=== PATIENT | female | born 1950 | race Caucasian/White ===

== ENCOUNTER 2021-08-18 13:50 | Emergency (ER) | payer MEDICARE, SELFPAY ==
--- NOTE | ~2021-08-18 | XR_ITS ---
EXAMINATION: XR chest 2V EXAM DATE: 08/18/2021 14:20 INDICATION: short of breath x 3 days non smoker . TECHNIQUE: Frontal and lateral projections of the chest obtained and reviewed. Comparison is made to prior examination from 12/30/2013. FINDINGS: Scattered small to moderate amount of right middle lobe airspace disease most consistent w ith pneumonia and atelectasis, smaller amount of right upper lobe and left-sided pneumonia or atelect asis. Mild cardiomegaly. There is no pneumothorax suspected. Mild hyperinflation. There is aortic art eriosclerosis. There are no pleural effusions. IMPRESSION: 1. Right middle lobe predominant airspace disease probably pneumonia. Smaller other regions of airsp marty disease bilaterally. 2. Hyperinflation. Reviewed, dictated and finalized at location G. PULLER IMPRESSION: 1. Right middle lobe predominant airspace disease probably pneumonia. Smaller other regions of airspace disease bilaterally. 2. Hyperinflation.
--- NOTE | 2021-08-18 13:51 | ED.URI ---
HPI - URI/Sore Throat General Chief Complaint: Upper Respiratory Infection Stated Complaint: Shortness of breath Time Seen by Provider: 08/18/21 14:01 Source: patient, RN notes reviewed and old records reviewed Mode of arrival: ambulatory Limitations: no limitations History of Present Illness HPI Narrative: 71-year-old female presents to the [facility] with complaints of shortness of breath for the last 3 to 4 days. Patient has a history of COPD. Sees a pile operator, Dr. Alvarez, and called him 3 days ago. States that he called her pile operator 3 to 4 days ago. Patient reports that a albuterol inhaler was called in, has been using and taking all of her medications as prescribed. Reports that the doctor told her that if she is not getting any better or gets worse to go to the ER. Patient comes in today with concerns that she might have pneumonia. Patient is talking in full sentences. States that she is not having chest pain but states her breathing feels tight. Denies cough or fever Pertinent past history: pneumonia, COPD and asthma Related Data Home Medications Medication Instructions Recorded Confirmed albuterol sulfate [Proventil HFA] INHALATION 08/18/21 alprazolam 08/18/21 amlodipine 08/18/21 atorvastatin 08/18/21 budesonide-formoterol [Symbicort] INHALATION 08/18/21 ferrous sulfate mg 08/18/21 losartan 08/18/21 neomycin-polymyxin B-dexameth drp 08/18/21 nitroglycerin mg 08/18/21 sertraline mg 08/18/21 Allergies Allergy/AdvReac Type Severity Reaction Status Date / Time aspirin Allergy Mild Verified 08/18/21 14:25 Penicillins Allergy Mild Verified 08/18/21 14:25 Review of Systems Review of Systems: All systems reviewed & are unremarkable except as noted in HPI and below Constitutional: Constitutional: Reports no additional constitutional complaints, Denies chills and Denies fever(s) Eyes: Eyes: Reports no additional eye complaints ENT: Reports system reviewed and no additional complaints, except as documented Cardiovascular: Cardiovascular: Reports no additional cardiovascular complaints, Denies chest pain, Denies rapid heart rate and Denies radiating jaw, neck or arm pain Respiratory: Respiratory: Reports as per HPI, Denies chest congestion, Denies cough, Reports dyspnea and Denies wheezing Gastrointestinal: Gastrointestinal: Reports no additional gastrointestinal complaints, Denies abdominal pain, Denies nausea and Denies vomiting Musculoskeletal: Musculoskeletal: Reports no additional musculoskeletal complaints and Denies joint swelling Integumentary/Breasts: Skin/Breast: Reports system reviewed and no additional complaints, except as docu Neurologic: Reports system reviewed and no additional complaints, except as documented Psychiatric: Psychiatric: Reports no additional psychiatric complaints Allergic/Immunologic: Allergic/Immunologic: Reports no additional allergic/immunologic complaints [facility] Past Medical History Medical History Asthma COPD (chronic obstructive pulmonary disease) High cholesterol History of high blood pressure Surgical History Surgical History No history of previous surgery Comments At the time of my signature, I reviewed and agree with the nursing past medical, surgical, social, and family history. There is no relevant family history pertinent to the patient complaint. Exam Const: General: no acute distress, alert and ill appearing chronically Nutritional Appearance: well nourished Orientation/consciousness: patient oriented x3 Limitations: no limitations HENMT: Head: normal to inspection Ears: external ears normal, TM's normal bilaterally and EAC's normal General nose exam: Normal external nose present and Normal nasal mucous membranes and turbinates present Face and sinus: normal facial exam Mouth: Yes Normal oral and palatal mucosa present Naomi
[2021-08-18 14:04] VITALS: BP 94/58; PULSE 100; RESP 18; TEMP 37.6; O2SAT 98
[2021-08-18 14:13] VITALS: BP 94/58; PULSE 100; RESP 18; TEMP 37.6; O2SAT 98
--- NOTE | 2021-08-18 14:19 | ECG_ITS ---
Measurements Intervals [place] Rate: 99 P: 23 [place]: 142 QRS: -9 QRSD: 78 T: -1 QT: 323 QTc: 415 Interpretive Statements SINUS RHYTHM EARLY PRECORDIAL R/S TRANSITION CONSIDER INFERIOR INFARCT, AGE INDETERMINATE ABNORMAL ECG Electronically Signed On 08-18-2021 18:13:03 AUT[employer]ATION QA TESTER by Donn Glez D.O.
== END 2021-08-18 14:35 | disposition home or self-care (01) ==
PROVIDERS: Emergency Provider Nurse Practitioner
DX: J18.1 Lobar pneumonia, unspecified organism (principal); J44.9 Chronic obstructive pulmonary disease, unspecified; E78.00 Pure hypercholesterolemia, unspecified; I10 Essential (primary) hypertension
CPT/HCPCS: 71046; 93005; 99213; G0463

== ENCOUNTER → 2021-09-01 13:43 | Outpatient (CLI) | payer MEDICARE, SELFPAY ==
--- NOTE | ~2021-09-01 | XR_ITS ---
EXAMINATION: XR chest 2V DATE: 09/01/2021 14:10 INDICATION: Pneumonia of right middle lobe due to infectious organism. TECHNIQUE: Frontal and lateral views of the chest were obtained. COMPARISON: Chest 2 views 08/18/2021, 12/30/2013 FINDINGS: There are airspace opacities in the mid and lower lung zones. There is mild scarring at the lung apices. No pleural effusion or pneumothorax. The heart size is normal. There is a moderate-size d hiatal hernia. IMPRESSION: 1. Stable airspace opacities in the mid and lower lung zones, consistent with pneumonia. 2. Moderate-sized hiatal hernia. Reviewed, dictated and finalized at location A. [facility] TENDER IMPRESSION: 1. Stable airspace opacities in the mid and lower lung zones, consistent with p neumonia. 2. Moderate-sized hiatal hernia.
== END ==
PROVIDERS: PCP Internal Medicine Pulmonary Disease; Visit Provider Internal Medicine Pulmonary Disease
DX: J18.9 Pneumonia, unspecified organism (principal); K44.9 Diaphragmatic hernia without obstruction or gangrene; R91.8 Other nonspecific abnormal finding of lung field
CPT/HCPCS: 71046

== ENCOUNTER 2021-11-07 12:05 | Emergency (ER) | payer MEDICARE, SELFPAY ==
[2021-11-07 12:11] VITALS: BP 110/55; PULSE 97; RESP 16; TEMP 35.9; O2SAT 99
--- NOTE | 2021-11-07 12:23 | ED.GENADULT ---
HPI - General Adult General Chief complaint: Unspecified Stated complaint: uri Time Seen by Provider: 11/07/21 12:26 Mode of arrival: ambulatory Limitations: no limitations History of Present Illness HPI narrative: 71-year-old female presents with concern for 2-day history of left lower jaw pain and swelling. Reports symptoms started after she flossed her teeth. She denies any known dental problems. She reports pain when she chews and her jaws tender to touch. She reports she had fever and chills 2 nights ago but has not had any since. Reports she has been taking Tylenol. She denies difficulty swallowing, headache, chest pain or trouble breathing. MD complaint: Jaw pain Related Data Home Medications Medication Instructions Recorded Confirmed albuterol sulfate [Proventil HFA] 1 puff INHALATION DAILY 08/18/21 11/07/21 alprazolam 0.5 mg PO PRN 08/18/21 11/07/21 amlodipine 5 mg PO DAILY 08/18/21 11/07/21 atorvastatin 40 mg PO DAILY 08/18/21 11/07/21 budesonide-formoterol [Symbicort] 1 puff INHALATION DAILY 08/18/21 11/07/21 ferrous sulfate 325 mg PO DAILY 08/18/21 11/07/21 losartan 50 mg PO DAILY 08/18/21 11/07/21 nitroglycerin 0.4 mg SUBLINGUAL PRN 08/18/21 11/07/21 sertraline 100 mg PO DAILY 08/18/21 11/07/21 Allergies Allergy/AdvReac Type Severity Reaction Status Date / Time aspirin Allergy Mild Unknown Verified 11/07/21 12:16 Penicillins Allergy Mild Unknown Verified 11/07/21 12:16 Review of Systems Review of Systems: CONSTITUTIONAL: Denies current malaise, chills, sweats, or fever. ENT: Denies rhinorrhea, congestion, sinus pain, otalgia or sore throat. Reports left lower jaw pain and swelling CARDIOVASCULAR: Denies chest pain, palpitations, or edema. RESPIRATORY: Denies cough or dyspnea. GASTROINTESTINAL: Denies nausea, vomiting SKIN: Denies rash or itching. Denies redness, warmth MUSCULOSKELETAL: Denies myalgia. NEUROLOGIC: Denies numbness, weakness, or headache. All systems reviewed & are unremarkable except as noted in HPI and below PMFSH Past Medical History Medical History Asthma COPD (chronic obstructive pulmonary disease) High cholesterol History of high blood pressure Surgical History Surgical History No history of previous surgery Social History Social History Gender identity (if verbalized by the patient): Female Comments At time of signature, agree with nursing past medical, surgical, social and family history. There is no relevant family history pertinent to the presenting complaint Exam Narrative: GENERAL: Well-appearing, well-nourished, and in no acute distress. HEAD: Normocephalic, atraumatic. EYES: PERRLA, sclera clear, and EOMI. No nystagmus. ENT: Nares clear, turbinates pink, no rhinorrhea or epistaxis. Mucous membranes moist. TM pearly ty with sharp light reflex bilaterally; no tragal tenderness. Oropharynx without erythema or lesions. Tonsils not enlarged and without exudate. No facial erythema, induration, warmth noted. Left lower jaw tenderness noted without swelling. Caries noted to the left lower posterior teeth NECK: Supple. No lymphadenopathy. CHEST: No respiratory distress. Clear to auscultation. No bony deformities, no asymmetry. Speaks in full sentences. HEART: Regular rate and rhythm. SKIN: Warm, dry, no visible rash. NEURO: Alert and oriented x3. PSYCH: Normal mood and affect Course Course Emergency Course: Patient is aware of diagnosis, understands and agrees to treatment plan. Anticipatory guidance given. Patient agrees to follow-up as directed and is aware of reasons to seek care at the emergency department. Portions of this record may have been created with voice recognition software Level of Care: Express Care Visit Vital Signs Vital signs: Vital Signs Temperature 96.6 F L 11/07/21 12:11 Pulse Rate
== END 2021-11-07 12:40 | disposition home or self-care (01) ==
PROVIDERS: Emergency Provider Nurse Practitioner
DX: K08.89 Other specified disorders of teeth and supporting structures (principal); J44.9 Chronic obstructive pulmonary disease, unspecified; E78.00 Pure hypercholesterolemia, unspecified; I10 Essential (primary) hypertension
CPT/HCPCS: 99213; G0463